=== PATIENT | female | born 1955 | race Caucasian/White ===

== ENCOUNTER 2023-03-08 17:29 | Inpatient (IN) | payer MEDICARE, OTHER ==
[~2023-03-08] VITALS: Ht 154.9 cm; Wt 49.0 kg
--- NOTE | 2023-03-08 17:40 | NUR ---
NIGEL FROM SNF FOR SOB X 3 DAYS, NOTED O2 DESATS TODAY, VENT DEPENDENT. PLACED IN BED, AAOX4, RESP. TECH. AT BEDSIDE ATTACHED TO VENTILATOR FIO2- 40, VT- 450, RATE- 12, PEEP- 5 SATURATING AT 99%.
--- NOTE | 2023-03-08 17:50 | NUR ---
BLOOD DRAWN AND SENT TO LAB
[2023-03-08] MEDS ORDERED: IPRATROPIUM NEB FS 0.5 MG/2.5 ML AMPUL.NEB ONE ×2 (17:53→21:31)
[2023-03-08] MEDS ORDERED: ALBUTEROL FS 2.5 MG/3 ML VIAL.NEB ONE ×2 (17:53→21:31)
[2023-03-08] MEDS ORDERED: IPRATROPIUM NEB FS 0.5 MG/2.5 ML AMPUL.NEB NEB ONE ×2 (18:00→21:30)
[2023-03-08] MEDS ORDERED: ALBUTEROL FS 2.5 MG/3 ML VIAL.NEB NEB ONE ×2 (18:00→21:30)
[2023-03-08 18:20] LABS: BASOPHILS % (AUTO) 0.3 % (0.0-2.0); EOSINOPHILS % (AUTO) 0.9 % (0.0-6.0); HEMATOCRIT 31 % (33-45); HEMOGLOBIN 9.8 g/dL (11.5-14.8); LYMPHOCYTES # (AUTO) 1.3 K/uL (0.8-4.8); LYMPHOCYTES % (AUTO) 7.7 % (20.0-44.0); MEAN CORPUSCULAR HGB CONC 31 g/dl (31.0-36.0); MEAN CORPUSCULAR VOLUME 87 fL (82-100); MONOCYTES # (AUTO) 0.8 K/uL (0.1-1.30); MONOCYTES % (AUTO) 4.8 % (2.0-12.0); NEUTROPHILS # (AUTO) 14.6 K/uL (1.8-8.9); NEUTROPHILS % (AUTO) 86.3 % (43.0-81.0); PLATELET COUNT (AUTO) 442 K/uL (150-450); WHITE BLOOD COUNT (AUTO) 16.9 K/uL (4.3-11.0)
[2023-03-08] MEDS ORDERED: LINA5TAB GT (18:22)
[2023-03-08] MEDS ORDERED: METO25TA20 GT (18:22)
[2023-03-08] MEDS ORDERED: NA P133E RC (18:22)
[2023-03-08] MEDS ORDERED: ACET-868 GT (18:22)
[2023-03-08] MEDS ORDERED: POLY17PO4 GT (18:22)
[2023-03-08] MEDS ORDERED: ASPI-1169 GT (18:22)
[2023-03-08] MEDS ORDERED: BUDE0.5A IH (18:22)
[2023-03-08] MEDS ORDERED: POTA10TA10 GT (18:22)
[2023-03-08] MEDS ORDERED: QUET100T GT (18:22)
[2023-03-08] MEDS ORDERED: ASCO-352 GT (18:22)
[2023-03-08] MEDS ORDERED: LACT1CAP71 GT (18:22)
[2023-03-08] MEDS ORDERED: METO-295 GT (18:22)
[2023-03-08] MEDS ORDERED: CRAN425C6 GT (18:22)
[2023-03-08] MEDS ORDERED: ZINC220C6 GT (18:22)
[2023-03-08] MEDS ORDERED: AMLO2.5T4 GT (18:22)
[2023-03-08] MEDS ORDERED: PHEN177S46 MM (18:22)
[2023-03-08] MEDS ORDERED: LORA-259 GT (18:22)
[2023-03-08] MEDS ORDERED: AMIN30LI2 GT (18:22)
[2023-03-08] MEDS ORDERED: ALBU2.5V38 IH ×2 (18:22)
[2023-03-08] MEDS ORDERED: CALC1TAB30 GT (18:22)
[2023-03-08] MEDS ORDERED: CLON0.5T4 GT (18:22)
[2023-03-08] MEDS ORDERED: INSU100V11 SQ (18:22)
[2023-03-08] MEDS ORDERED: DOCU-141 GT (18:22)
[2023-03-08] MEDS ORDERED: BISA10SU11 RC (18:22)
[2023-03-08] MEDS ORDERED: CRAN3875 GT (18:22)
[2023-03-08] MEDS ORDERED: MULT-447 GT (18:22)
[2023-03-08] MEDS ORDERED: CAPT25TA3 GT (18:22)
[2023-03-08] MEDS ORDERED: FERR300L GT (18:22)
[2023-03-08] MEDS ORDERED: PRED20TA GT (18:22)
[2023-03-08] MEDS ORDERED: ACET-2605 GT (18:22)
[2023-03-08] MEDS ORDERED: LAMO150T2 GT (18:22)
[2023-03-08] MEDS ORDERED: QUET50TA GT (18:22)
[2023-03-08] MEDS ORDERED: HYDR-500 GT (18:22)
[2023-03-08] MEDS ORDERED: DAPA10TA GT (18:22)
[2023-03-08] MEDS ORDERED: ESCI10TA GT (18:22)
[2023-03-08] MEDS ORDERED: NUT.237L30 GT (18:22)
[2023-03-08] MEDS ORDERED: CLOB15OI3 TP (18:22)
[2023-03-08] MEDS ORDERED: CHLO473M5 MM (18:22)
[2023-03-08] MEDS ORDERED: MAGN400O6 GT (18:22)
[2023-03-08] MEDS ORDERED: HYDR-4076 GT (18:22)
[2023-03-08] MEDS ORDERED: LANS30CA56 GT (18:22)
[2023-03-08 18:29] LABS: CALCIUM, SERUM 11.2 mg/dL (8.5-10.1); CREATININE 0.9 mg/dL (0.6-1.3)
[2023-03-08 18:41] LABS: ALBUMIN 3.7 g/dL (3.4-5.0); BILIRUBIN,TOTAL 0.3 mg/dL (0.2-1.0); TOTAL PROTEIN, SERUM 7.7 g/dL (6.4-8.2)
--- NOTE | 2023-03-08 18:53 | NUR ---
[place] [phone] CALVIN RN
--- NOTE | 2023-03-08 19:11 | NUR ---
RT pt received on mechanical vent with current settings. trached, shiley 6 xlt. vent settings: AC 12 450 40% +5. no sob, no resp distress. alarms on and audible. spare trach and ambu bag at bedside.
[2023-03-08 19:13] LABS: ABG PCO2 63.9 mmHg (35.0-45.0); ABG PH 7.421 (7.350-7.450); COHb 0.2 % (0.5-1.5); MetHb 0.9 % (0.0-1.5); O2Hb 96.9 % (94.0-97.0); SITE, ABG Left Radial; VENT MODE, BG AC 12 450 40% +5
--- NOTE | 2023-03-08 19:30 | NUR ---
SWAB FOR COVID19 SENT TO LAB
[2023-03-08] MEDS ORDERED: methylPREDNISolone SOD SUCC 125 MG/2ML VIAL ONE (21:13)
[2023-03-08] MEDS ORDERED: methylPREDNISolone SOD SUCC 125 MG/2ML VIAL IV ONE (21:30)
[2023-03-08] MEDS ORDERED: LORAZEPAM INJ 2 MG/ML VIAL ONE (21:42)
[2023-03-08] MEDS ORDERED: LORAZEPAM INJ 2 MG/ML VIAL IV ONE (22:00)
--- NOTE | 2023-03-08 22:17 | NUR ---
BED 329
--- NOTE | 2023-03-08 22:27 | NUR ---
REPORT SAMIR MENDOZA RN ROOM 329 FOR VERNA
[2023-03-08] MEDS ORDERED: Z GUARD REMEDY 4 OZ OINT TP PRN (22:30)
[2023-03-08] MEDS ORDERED: BISACODYL SUPP (10 MG) 10 MG/SUPP.RECT SUPP.RECT RC PRN (22:30)
[2023-03-08] MEDS ORDERED: ACETAMINOPHEN 325 MG TABLET MC PRN (22:30)
[2023-03-08] MEDS ORDERED: MAG HYDROX/AL HYDROX/SIMETH 30 ML UDC GT PRN (22:30)
[2023-03-08] MEDS ORDERED: MAGNESIUM HYDROXIDE 30 ML UDC PO PRN (22:30)
[2023-03-08] MEDS ORDERED: ONDANSETRON HCL/PF 4 MG/2 ML VIAL IVP PRN (22:30)
[2023-03-08] MEDS ORDERED: BUDESONIDE RESPULE INH 0.5 MG/2 ML AMPUL.NEB IH PRN (22:30)
[2023-03-08] MEDS ORDERED: ALBUTEROL FS 2.5 MG/3 ML VIAL.NEB IH PRN (22:30)
[2023-03-08] MEDS ORDERED: METOCLOPRAMIDE HCL 10 MG TABLET GT PRN (22:30)
[2023-03-08] MEDS ORDERED: ZOLPIDEM TARTRATE 5 MG TABLET GT PRN (22:30)
[2023-03-08] MEDS ORDERED: ACETAMINOPHEN ES 500 MG TABLET GT PRN (22:30)
[2023-03-08] MEDS ORDERED: MAGNESIUM HYDROXIDE 30 ML UDC GT PRN (22:30)
[2023-03-08] MEDS ORDERED: DEXTROSE 50%-WATER 50 ML DISP.SYRIN IV PRN (22:30)
[2023-03-08 23:10] VITALS: BP 171/69
--- NOTE | 2023-03-08 23:10 | NUR ---
TELEPHONE LINES REPAIRER ADMITTING NOTES PT ARRIVED TO UNIT @ 2310 VIA GURNEY ASSISTED BY ER AND RT STAFF, CAME WITH VENTILATOR. PT IS NON-VERBAL BUT ALERT AND ABLE TO MOUTH WORDS OR WRITE IN PAPER OR TYPE IN PHONE TO COMMUNICATE FOR NEEDS. ON MECHANICAL VENTILATOR TOLERATING WELL WITH NO S/S OF SOB OR DISTRESS. DENIES PAIN AT THIS TIME BUT ANXIOUS AND REQUESTING ATIVAN. EXPLAINED TO PT THAT SHE WAS JUST GIVEN ATIVAN IN ER AND WILL HAVE TO WAIT UNTIL ITS DUE. PT COMMUNICATED UNDERSTANDING. VENTILATOR SETTINGS: FIO2 40%, VT 450 ML, RATE 12/MIN, PEEP 5. VITAL SIGNS: 171/69 BP, 84 HR, 98 F TEMP, 98% O2, 19 RR, 98 BLOOD SUGAR. PLACED ON TELE MONITOR READING SR, 82 HR. BREATH SOUNDS NOTED WITH RHONCHI. CIRCULATION WNL. ABDOMEN SOFT, NON-TENDER, NON-DISTENDED. GTUBE INTACT, PLACEMENT CONFIRMED, NO RESIDUALS, NO LEAKAGE, FLUSHED WELL. COLOSTOMY INTACT, ALMOST FULL. SKIN ASSESSMENT PERFORMED, SOME ISSUES NOTED AND DOCUMENTED. BELONGINGS DOCUMENTED. PT ORIENTED TO UNIT AND HOW TO USE CALL LIGHT. MADE COMFORTABLE. SAFETY AND SEIZURE PRECAUTIONS PUT IN PLACE: BED LOCKED AND IN LOW POSITION, SIDE RAILS UP X3, BED ALARM ON, SUCTION SETUP IN PLACE, CALL LIGHT WITHIN REACH. WILL CONTINUE TO MONITOR AND ASSIST.
--- NOTE | 2023-03-08 23:10 | NUR ---
PATIENT TRANSFERED AND ADMITTED PER ACLS PROTOCOL
--- NOTE | 2023-03-08 23:16 | NUR ---
RT pt transferred to floor with no complications. placed on vent, plugged in to red outlet. alarms on and audible. ambu bag at bedside
[2023-03-08] MEDS ORDERED: LEVOFLOXACIN 500 MG /D5W 100ML 100 ML IV ONE (23:27)
[2023-03-08] MEDS ORDERED: ACETAMINOPHEN 650 MG/20.3 ML UDC GT PRN (23:30)
[2023-03-08] MEDS: LEVOFLOXACIN 500 MG /D5W 100ML 500 MG in PREMIX 1 EA IV SCH (23:58)
[2023-03-08] MEDS: BLOOD SUGAR DIAGNOSTIC 1 EACH STRIP IN SCH (23:58)
[2023-03-08] MEDS: INSULIN REGULAR, HUMAN 100 UNIT/ML 3 ML VIAL SQ PRN (23:59)
[2023-03-09] MEDS: hydrALAZINE HCL 25 MG TABLET GT PRN ×2 (00:32→21:15)
--- NOTE | 2023-03-09 00:32 | NUR ---
RN NOTE PT BP 171/69. GIVEN PRN HYDRALAZINE FOR MANAGEMENT. WILL REASSESS BP IN 1 HOUR.
[2023-03-09 01:43] VITALS: BP 154/75
--- NOTE | 2023-03-09 01:43 | NUR ---
RN NOTE BP REASSESSED: 154/75.
[2023-03-09] MEDS: LORAZEPAM 1 MG TABLET GT PRN ×3 (01:48→23:24)
[2023-03-09] MEDS: GLUCERNA 1.2 1,000 ML BOTTLE NG PRN (03:09)
[2023-03-09] MEDS ORDERED: CAPTOPRIL 25 MG TABLET GT SCH (05:00)
[2023-03-09] MEDS: methylPREDNISolone SOD SUCC 40 MG/ML VIAL IV SCH ×3 (05:03→20:47)
[2023-03-09] MEDS: clonazePAM 0.5 MG TABLET GT SCH ×3 (05:03→20:23)
--- NOTE | 2023-03-09 05:04 | NUR ---
RN NOTE SCHEDULED CAPTOPRIL 25 MG @ 0500 NOT AVAILABLE ANYWHERE IN UNIT OR ANYWHERE ELSE IN FACILITY. BP 153/69. WILL MONITOR BP. CHARGE NURSE AWARE.
[2023-03-09 05:56] LABS: ABG BASE EXCESS 5.6 mmol/L; ABG OXYGEN SATURATION 97.6 % (92.0-98.5); ABG PCO2 47.7 mmHg (35.0-45.0); ABG PH 7.427 (7.350-7.450); ABG PO2 104.9 mmHg (75.0-100.0); AaDO2 125.4 mmHg; COHb 0.2 % (0.5-1.5); MetHb 0.3 % (0.0-1.5); O2Hb 97.1 % (94.0-97.0); SITE, ABG Right Radial; VENT MODE, BG AC 12 450 40% +5
[2023-03-09] MEDS: BLOOD SUGAR DIAGNOSTIC 1 EACH STRIP IN SCH ×4 (06:43→23:33)
[2023-03-09] MEDS: INSULIN REGULAR, HUMAN 100 UNIT/ML 3 ML VIAL SQ PRN ×3 (06:43→23:36)
--- NOTE | 2023-03-09 06:59 | NUR ---
AUDIOVISUAL TECHNICIAN CLOSING NOTES PT AWAKE IN BED AT THIS TIME. A/O X1-2, NON-VERBAL BUT ALERT AND ABLE TO MOUTH WORDS OR WRITE IN PAPER OR TYPE IN PHONE TO COMMUNICATE FOR NEEDS. MOMENTS OF CONFUSION AT TIMES. STABLE ON MECHANICAL VENTILATOR TOLERATING WELL WITH NO S/S OF SOB OR DISTRESS. VENTILATOR SETTINGS: FIO2 40%, VT 450 ML, RATE 12/MIN, PEEP 5. GTUBE INTACT, PLACEMENT CONFIRMED, NO RESIDUALS, NO LEAKAGE, FLUSHED WELL. RUNNING GLUCERNA 1.2 @ 50 ML/HR. FEEDING PAUSED 1 HR BEFORE AND AFTER ADMIN OF LEVAQUIN. COLOSTOMY INTACT, REPLACED DURING SHIFT. ALL CARE PROVIDED AND MEDS TOLERATED WELL. SUCTIONED PRN OR PER REQUEST. SAFETY AND SEIZURE PRECAUTIONS MAINTAINED: BED LOCKED AND IN LOW POSITION, SIDE RAILS UP X3, BED ALARM ON, SUCTION SETUP IN PLACE, CALL LIGHT WITHIN REACH. WILL ENDORSE EVRNA TO DAY SHIFT NURSE.
[2023-03-09 07:36] LABS: BASOPHILS % (AUTO) 0.1 % (0.0-2.0); HEMATOCRIT 28 % (33-45); HEMOGLOBIN 8.9 g/dL (11.5-14.8); LYMPHOCYTES # (AUTO) 0.8 K/uL (0.8-4.8); LYMPHOCYTES % (AUTO) 5.2 % (20.0-44.0); MEAN CORPUSCULAR HGB CONC 32 g/dl (31.0-36.0); MEAN CORPUSCULAR VOLUME 87 fL (82-100); MONOCYTES # (AUTO) 0.2 K/uL (0.1-1.30); MONOCYTES % (AUTO) 1.1 % (2.0-12.0); NEUTROPHILS # (AUTO) 15.2 K/uL (1.8-8.9); NEUTROPHILS % (AUTO) 93.6 % (43.0-81.0); PLATELET COUNT (AUTO) 374 K/uL (150-450); RED BLOOD CELL COUNT(AUTO) 3.23 MIL/uL (4.0-5.2); WHITE BLOOD COUNT (AUTO) 16.2 K/uL (4.3-11.0)
[2023-03-09] MEDS: ALBUTEROL FS 2.5 MG/3 ML VIAL.NEB IH SCH ×2 (07:46)
--- NOTE | 2023-03-09 07:59 | NUR ---
RN OPENING NOTE RECEIVED PATIENT IN BED, ABLE TO RESPONDS ALL PHYSICAL STIMULI. PATIENT IS ON VENTILATOR, RESPIRATORY EVEN AND UNLABORED. IN NO ACUTE RESPIRATORY DISTRESS OBSERVED. SKIN IS WARM TO TOUCH, KEEP CLEAN/DRY. KEPT ELEVATED HOB FOR ASPIRATION PRECAUTION AND ENSURE AIRWAY, ALSO LOWEST BED POSITIONED. BED ALARM IS ON AT ALL TIMES FOR SAFETY. CALL LIGHT WITHIN REACH, WILL CONTINUE TO MONITOR.
[2023-03-09 08:00] VITALS: BP 161/74
[2023-03-09 08:09] LABS: CALCIUM, SERUM 10.6 mg/dL (8.5-10.1); CREATININE 0.9 mg/dL (0.6-1.3); MAGNESIUM 2.2 mg/dL (1.8-2.4); PHOSPHORUS 4.7 mg/dL (2.5-4.9); POTASSIUM 3.5 mmol/L (3.5-5.1)
[2023-03-09] MEDS: PANTOPRAZOLE 40 MG VIAL IV SCH (08:55)
[2023-03-09] MEDS: LamoTRIgine 25 MG TABLET GT SCH ×2 (08:56→20:23)
[2023-03-09] MEDS: FERROUS SULFATE UDC 300 MG/5 ML UDC GT SCH ×2 (08:57→16:55)
[2023-03-09] MEDS: ESCITALOPRAM OXALATE (10 MG) 10 MG TABLET GT SCH (08:57)
[2023-03-09] MEDS: LamoTRIgine 100 MG TABLET GT SCH ×2 (08:57→20:23)
[2023-03-09] MEDS: CALCIUM CARB 600MG /VIT D 1 EACH TABLET GT SCH (08:57)
[2023-03-09] MEDS: CHLORHEXIDINE GLUCONATE 15 ML UDC MM SCH ×2 (08:57→16:55)
[2023-03-09] MEDS: QUETIAPINE FUMARATE 25 MG TABLET GT SCH ×2 (08:57→16:56)
[2023-03-09] MEDS: DOCUSATE SODIUM LIQ 100 MG/10 ML UDC GT SCH ×2 (08:57→16:55)
[2023-03-09] MEDS: ASCORBIC ACID 500 MG TABLET GT SCH (08:57)
[2023-03-09] MEDS: MULTIVIT W/MINERALS 1 TAB TABLET GT SCH (08:58)
[2023-03-09] MEDS: LACTOBACILLUS RHAMNOSUS GG 1 EACH CAP.SPRINK GT SCH ×2 (08:58→16:55)
[2023-03-09] MEDS: ASPIRIN 81 MG TAB.CHEW GT SCH (08:58)
[2023-03-09] MEDS: METOPROLOL TARTRATE 25 MG TABLET GT SCH ×2 (08:59→16:55)
[2023-03-09] MEDS: LINAGLIPTIN 5 MG TABLET GT SCH (08:59)
[2023-03-09] MEDS: AMLODIPINE BESYLATE 2.5 MG TABLET GT SCH ×2 (08:59→16:56)
[2023-03-09] MEDS: LISINOPRIL (10MG) 10 MG TABLET PO SCH ×2 (08:59→16:55)
[2023-03-09] MEDS ORDERED: Medication Not On Formulary EA (Cran/Vitc/Mannose/Inulin/Brom (Uti-Stat Liquid) 3,875 MG GT SCH (09:00)
[2023-03-09] MEDS ORDERED: Medication Not On Formulary EA (Lamotrigine (Lamictal) 150 MG) GT SCH (09:00)
[2023-03-09] MEDS: DAPAGLIFLOZIN PROPANEDIOL 5 MG TABLET GT SCH (09:04)
[2023-03-09] MEDS: PROSOURCE / PROSTAT (PYXIS) 30 ML UDC GT SCH (09:04)
[2023-03-09] MEDS: CLOBETASOL 0.05% OINT 30 GM TUBE TP SCH ×2 (09:05→16:57)
[2023-03-09] MEDS: ENOXAPARIN SODIUM 40 MG/0.4 ML DISP.SYRIN SQ SCH (11:01)
[2023-03-09 12:00] VITALS: BP 151/72
[2023-03-09] MEDS: ALBUTEROL FS 2.5 MG/3 ML VIAL.NEB NEB SCH ×2 (13:41→18:48)
[2023-03-09 16:00] VITALS: BP 168/85
--- NOTE | 2023-03-09 18:08 | NUR ---
RECEIVED PATIENT ON MD ORDERED VENT SETTINGS. HAS A TRACH SHILEY 6XLT. AIRWAY PATENT AND SECURE. HHN TXS DAIJA WELL WITH NO ADVERSE REACTION NOTED. AMBU BAG AND EMERGENCY TRACH AT THE BEDSIDE. VENT PLUGGED INTO RED OUTLET. ALARMS SET AND AUDIBLE. NO SOB NOTED.
--- NOTE | 2023-03-09 18:29 | NUR ---
RN CLOSING NOTE PATIENT RESTING IN BED. IN NO ACUTE DISTRESS OBSERVED. THE PATIENT IS ON VENTILATION AND RESPIRATORY EVEN AND UNLABORED, NO SOB OR DESATURATION NOTED. PATIENT SCHEDULED HHN Q 6 HOURS. SKIN IS WARM TO TOUCH KEEP CLEAN/DRY. KEPT ELEVATED HOB FOR ENSURE AIRWAY AND ASPIRATION PRECAUTION, ALSO LOWEST BED POSITION. BED ALARM IS ON AT ALL TIMES FOR SAFETY. CALL LIGHT WITHIN REACH, WILL ENDORSE HORTICULTURAL SPECIALTY GROWER.
--- NOTE | 2023-03-09 18:51 | NUR ---
Rt called to Pt room at start of shift, Pt assessed and is not in any Respiratory distress. Pt is on AC PRVC settings of Rate 12, VT 450, 40% Peep +5. Pt is comfortable on this settings. Diminished breath sounds all lobes, Pt suctioned with small thick yellow secretions. Pt refuses to have trach cuff inflated properly so she can talk. Neb tx given and babar well. Vent plugged into red outlet with alarms on and audible. Spare trach and ambu bag at bedside. Spo2 >92%
--- NOTE | 2023-03-09 19:30 | NUR ---
TANKAGE GRINDER OPERATOR OPENING NOTE RECEIVED PATIENT FROM AM NURSE; PATIENT IS A/O X 2, NON VERBAL BUT IS ABLE TO MOUTH WORDS; STABLE ON MECH VENT TOLERATING CURRENT SETTINGS; HOOKED TO HOG HANDLER CURRENTLY READING SINUS RHYTHM; COLOSTOMY BAG IN PLACE DRAINING TO BROWN COLORED STOOL; ON TUBE FEEDING RUNNING WITH GLUCERNA 1.2 AT 50ML/HR; WITH IV ACCESS AT LEFT AC G#20 SALINE LOCK; ENCOURAGED VERBALIZATION OF NEEDS; SAFETY MEASURES IMPLEMENTED, BED LOCKED IN LOWEST POSITION, SIDE RAILS UP X 3, CALL LIGHT AND TABLE WITHIN REACH; WILL CONTINUE TO MONITOR THROUGHOUT SHIFT
[2023-03-09 20:00] VITALS: BP 165/90
--- NOTE | 2023-03-09 21:20 | NUR ---
CARBON SEQUESTRATION PLANT ENGINEER NOTE INFORMED BY CLUB WAITER/WAITRESS THAT PATIENT'S BP WAS 176/61 MMHG; RECHECKED BP MANUALLY AND PATIENT'S BP WAS 165/80; CHECKED AGAIN AFTERWARDS AND WENT UP AGAIN TO 175/80; ADMINISTERED HYDRALAZINE 25MG PRN ORDERED; PATIENT TOLERATED WELL, WILL CONTINUE TO MONITOR
[2023-03-09] MEDS: QUETIAPINE FUMARATE 100 MG TABLET GT SCH (21:44)
[2023-03-09] MEDS: LEVOFLOXACIN 500 MG /D5W 100ML 500 MG in PREMIX 1 EA IV SCH (21:44)
[2023-03-10] VITALS (7 sets, daily range): BP systolic 144–164; BP diastolic 55–90
[2023-03-10] MEDS: ALBUTEROL FS 2.5 MG/3 ML VIAL.NEB NEB SCH ×4 (02:17→20:42)
[2023-03-10] MEDS: GLUCERNA 1.2 1,000 ML BOTTLE NG PRN (04:03)
[2023-03-10] MEDS: methylPREDNISolone SOD SUCC 40 MG/ML VIAL IV SCH ×3 (04:29→20:24)
[2023-03-10] MEDS: clonazePAM 0.5 MG TABLET GT SCH ×3 (04:29→20:23)
[2023-03-10] MEDS: BLOOD SUGAR DIAGNOSTIC 1 EACH STRIP IN SCH ×3 (05:20→17:08)
[2023-03-10] MEDS: INSULIN REGULAR, HUMAN 100 UNIT/ML 3 ML VIAL SQ PRN (05:38)
[2023-03-10 06:21] LABS: BILIRUBIN,URINE NEGATIVE (NEGATIVE); COLOR,URINE YELLOW (YELLOW); LEUKOCYTE ESTERASE ,URINE NEGATIVE (NEGATIVE); NITRITE, URINE NEGATIVE (NEGATIVE); PROTEIN,URINE NEGATIVE (NEGATIVE); UGLUCOSE 2+ mg/dL (NEGATIVE); UROBILINOGEN,URINE 0.2 EU/dL (0.2)
[2023-03-10 06:22] LABS: BACTERIA,URINE Rare /HPF (None Seen); RBC,URINE 0-2 /HPF (0-2); SQUAMOUS EPITHELIAL CELL,UR Few /HPF (None Seen); WBC,URINE 0-2 /HPF (0-3)
--- NOTE | 2023-03-10 06:57 | NUR ---
MEDICAL/SURGERY REGISTERED NURSE CLOSING NOTE PATIENT RESTING IN BED, A/O X 2, NON VERBAL BUT IS ABLE TO MOUTH WORDS; STABLE ON MECH VENT TOLERATING CURRENT SETTINGS; HOOKED TO FOOD COUNTER WORKER CURRENTLY READING SINUS RHYTHM 60-70S BPM; COLOSTOMY BAG IN PLACE DRAINING TO BROWN COLORED STOOL; ON TUBE FEEDING RUNNING WITH GLUCERNA 1.2 AT 50ML/HR; WITH IV ACCESS AT LEFT ANTECUBITAL G#20 SALINE LOCK, INTACT AND PATENT; ADMINISTERED MEDICATIONS PRESCRIBED; PATIENT'S NEEDS ATTENDED; MONITORED PATIENT ACCORDINGLY; NO COMPLAINTS OF PAIN AND DISCOMFORT AT THIS TIME; SAFETY MEASURES IMPLEMENTED, BED LOCKED IN LOWEST POSITION, SIDE RAILS UP X 3, CALL LIGHT WITHIN REACH; WILL ENDORSE TO AM NURSE FOR VERNA.
--- NOTE | 2023-03-10 07:20 | NUR ---
RN OPENING NOTE RECEIVED PATIENT IN BED, AWAKE, RESPONSIVE. PATIENT IS ON VENTILATOR, RESPIRATION EVEN AND UNLABORED, NO RESPIRATORY DISTRESS NOTED. SKIN IS WARM TO TOUCH. G-TUBE IN PLACE, FLUSHES WELL. STOMA POUCH 1/3 FULL, SKIN AROUND CLEAN AND DRY. ELEVATED HOB FOR ASPIRATION PRECAUTION AND ENSURE AIRWAY. IV ACCESS LEFT AC 20G. BED ALARM IS ON AT ALL TIMES FOR SAFETY. CALL LIGHT WITHIN REACH, WILL CONTINUE TO MONITOR.
[2023-03-10] MEDS: LORAZEPAM 1 MG TABLET GT PRN ×2 (07:56→14:59)
[2023-03-10 08:56] LABS: BASOPHILS % (AUTO) 0.1 % (0.0-2.0); HEMATOCRIT 32 % (33-45); HEMOGLOBIN 9.9 g/dL (11.5-14.8); LYMPHOCYTES % (AUTO) 4.9 % (20.0-44.0); MEAN CORPUSCULAR HGB CONC 31 g/dl (31.0-36.0); MEAN CORPUSCULAR VOLUME 88 fL (82-100); MONOCYTES # (AUTO) 0.6 K/uL (0.1-1.30); MONOCYTES % (AUTO) 3.1 % (2.0-12.0); NEUTROPHILS # (AUTO) 18.2 K/uL (1.8-8.9); NEUTROPHILS % (AUTO) 91.9 % (43.0-81.0); PLATELET COUNT (AUTO) 409 K/uL (150-450); RED BLOOD CELL COUNT(AUTO) 3.68 MIL/uL (4.0-5.2); WHITE BLOOD COUNT (AUTO) 19.8 K/uL (4.3-11.0)
[2023-03-10] MEDS: LamoTRIgine 25 MG TABLET GT SCH ×2 (09:00→20:23)
[2023-03-10] MEDS: PROSOURCE / PROSTAT (PYXIS) 30 ML UDC GT SCH (09:17)
[2023-03-10] MEDS: CHLORHEXIDINE GLUCONATE 15 ML UDC MM SCH ×2 (09:18→16:43)
[2023-03-10] MEDS: CLOBETASOL 0.05% OINT 30 GM TUBE TP SCH ×2 (09:18→16:38)
[2023-03-10] MEDS: PANTOPRAZOLE 40 MG VIAL IV SCH (09:31)
[2023-03-10] MEDS: DOCUSATE SODIUM LIQ 100 MG/10 ML UDC GT SCH ×2 (09:31→16:37)
[2023-03-10] MEDS: FERROUS SULFATE UDC 300 MG/5 ML UDC GT SCH ×2 (09:31→16:43)
[2023-03-10] MEDS: LACTOBACILLUS RHAMNOSUS GG 1 EACH CAP.SPRINK GT SCH ×2 (09:32→16:43)
[2023-03-10] MEDS: CALCIUM CARB 600MG /VIT D 1 EACH TABLET GT SCH (09:32)
[2023-03-10] MEDS: LamoTRIgine 100 MG TABLET GT SCH ×2 (09:32→20:24)
[2023-03-10] MEDS: QUETIAPINE FUMARATE 25 MG TABLET GT SCH ×2 (09:32→16:43)
[2023-03-10] MEDS: ASPIRIN 81 MG TAB.CHEW GT SCH (09:32)
[2023-03-10] MEDS: ESCITALOPRAM OXALATE (10 MG) 10 MG TABLET GT SCH (09:32)
[2023-03-10] MEDS: LINAGLIPTIN 5 MG TABLET GT SCH (09:32)
[2023-03-10] MEDS: LISINOPRIL (10MG) 10 MG TABLET PO SCH ×2 (09:33→16:44)
[2023-03-10] MEDS: MULTIVIT W/MINERALS 1 TAB TABLET GT SCH (09:34)
[2023-03-10] MEDS: AMLODIPINE BESYLATE 2.5 MG TABLET GT SCH ×2 (09:34→16:43)
[2023-03-10] MEDS: ASCORBIC ACID 500 MG TABLET GT SCH (09:34)
[2023-03-10] MEDS: METOPROLOL TARTRATE 25 MG TABLET GT SCH ×2 (09:34→16:44)
[2023-03-10] MEDS: ENOXAPARIN SODIUM 40 MG/0.4 ML DISP.SYRIN SQ SCH (09:38)
[2023-03-10] MEDS: DAPAGLIFLOZIN PROPANEDIOL 5 MG TABLET GT SCH (09:42)
--- NOTE | 2023-03-10 18:36 | NUR ---
RN CLOSING NOTE PATIENT IN BED, AWAKE, SITTING UPRIGHT, RESPONSIVE. PATIENT IS ON VENTILATOR, RESPIRATION EVEN AND UNLABORED, NO RESPIRATORY DISTRESS NOTED. SKIN IS WARM TO TOUCH. G-TUBE IN PLACE, FLUSHES WELL. STOMA POUCH CHANGED, SKIN AROUND CLEAN AND DRY. IV ACCESS LEFT AC 20G. BED ALARM IS ON AT ALL TIMES FOR SAFETY. CALL LIGHT WITHIN REACH, WILL ENDORSE TO THE TUFTING CREELER FOR VERNA.
--- NOTE | 2023-03-10 19:20 | NUR ---
FOOD SERVER OPENING NOTE PATIENT IS A/O X 2-3, NON VERBAL BUT IS ABLE TO MOUTH WORDS; STABLE ON MECH VENT TOLERATING CURRENT SETTINGS; HOOKED TO PICKING BELT OPERATOR CURRENTLY READING SINUS RHYTHM; COLOSTOMY BAG IN PLACE DRAINING TO BROWN COLORED STOOL; ON TUBE FEEDING RUNNING WITH GLUCERNA 1.2 AT 50ML/HR; WITH IV ACCESS AT LEFT AC G#20 SALINE LOCK; ENCOURAGED VERBALIZATION OF NEEDS; SAFETY MEASURES IMPLEMENTED, BED LOCKED IN LOWEST POSITION, SIDE RAILS UP X 3, CALL LIGHT AND TABLE WITHIN REACH; WILL CONTINUE TO MONITOR THROUGHOUT SHIFT
[2023-03-10] MEDS: QUETIAPINE FUMARATE 100 MG TABLET GT SCH (21:40)
[2023-03-10] MEDS: LEVOFLOXACIN 500 MG /D5W 100ML 500 MG in PREMIX 1 EA IV SCH (21:41)
[2023-03-11] VITALS: BP 135/60
[2023-03-11] MEDS: BLOOD SUGAR DIAGNOSTIC 1 EACH STRIP IN SCH ×4 (00:04→18:14)
[2023-03-11] MEDS: LORAZEPAM 1 MG TABLET GT PRN ×5 (01:29→23:27)
--- NOTE | 2023-03-11 01:35 | NUR ---
MANAGER SUPPLY CHAIN NOTE PATIENT CALLED AND REQUESTED ATIVAN; ADMINISTERED ATIVAN PRN ORDERED AT 0129H; PATIENT TOLERATED WELL; WILL CONTINUE TO MONITOR
[2023-03-11] MEDS: ALBUTEROL FS 2.5 MG/3 ML VIAL.NEB NEB SCH ×2 (02:19→07:33)
[2023-03-11] MEDS: GLUCERNA 1.2 1,000 ML BOTTLE NG PRN (02:26)
[2023-03-11 04:00] VITALS: BP 173/76
[2023-03-11] MEDS: methylPREDNISolone SOD SUCC 40 MG/ML VIAL IV SCH (04:19)
[2023-03-11] MEDS: clonazePAM 0.5 MG TABLET GT SCH ×3 (04:19→21:06)
[2023-03-11] MEDS: hydrALAZINE HCL 25 MG TABLET GT PRN (04:33)
--- NOTE | 2023-03-11 05:45 | NUR ---
Pt requests that cuff is slighlty deflated to communicate needs easier. Does not appear in an resp distress.
--- NOTE | 2023-03-11 06:00 | NUR ---
ALLERGY PHYSICIAN NOTE PATIENT GOT ANXIOUS; TRIED TO CALM THE PATIENT DOWN BUT IS UNABLE TO; ADMINISTERED DUE DOSE OF ATIVAN PRN AT 0534; PATIENT TOLERATED WELL AND IS ABLE TO FEEL A LITTLE BETTER; WILL CONTINUE TO MONITOR
--- NOTE | 2023-03-11 06:58 | NUR ---
FORM RAISER CLOSING NOTE PATIENT IS A/O X 2-3, NON VERBAL BUT IS ABLE TO MOUTH WORDS; STABLE ON MECHANICAL VENTILATOR TOLERATING CURRENT SETTINGS; HOOKED TO CITY PLANT SUPERVISOR CURRENTLY READING SINUS RHYTHM 90S; COLOSTOMY BAG IN PLACE DRAINING TO BROWN COLORED STOOL; ON TUBE FEEDING RUNNING WITH GLUCERNA 1.2 AT 50ML/HR; WITH IV ACCESS AT LEFT AC G#20 SALINE LOCK, INTACT AND PATENT; ADMINISTERED MEDICATIONS PRESCRIBED; PATIENT'S NEEDS ATTENDED; MONITORED PATIENT ACCORDINGLY; SAFETY MEASURES IMPLEMENTED, BED LOCKED IN LOWEST POSITION, SIDE RAILS UP X 3, CALL LIGHT AND TABLE WITHIN REACH; WILL ENDORSE TO AM NURSE FOR VERNA.
[2023-03-11 07:00] VITALS: BP 156/57
--- NOTE | 2023-03-11 07:47 | NUR ---
BRACELET FORMER Opening Note Received patient on bed awake, A/O x2-3, bedrest, sacral redness, bilateral upper extremeties bruses with rash, VS q4, non verbal, able to mouth words to make needs known, able to calm down with staff consult, on mech vent Danya XLT Proximal. FiO2 40%, VT 450ml, P 5 cmH2O, Rate 12/min, on tele monitor, colostomy bad at Left upper abd, Gtube site at Left abd with Glucerna 1.2 running at 50 ml/h, IV access #20 saline lock at Left AC. [place] face. Safety measure inplace, bed lock in lowest position, side rails up x3, call light at reach. Continue to monitor patient.
[2023-03-11] MEDS: ALBUTEROL HALF STRENGTH 1.25 MG/3 ML VIAL.NEB NEB SCH ×3 (09:30→20:52)
[2023-03-11] MEDS: IPRATROPIUM NEB FS 0.5 MG/2.5 ML AMPUL.NEB NEB SCH ×3 (09:30→20:52)
[2023-03-11] MEDS: LACTOBACILLUS RHAMNOSUS GG 1 EACH CAP.SPRINK GT SCH ×2 (10:08→17:48)
[2023-03-11] MEDS: CHLORHEXIDINE GLUCONATE 15 ML UDC MM SCH ×2 (10:08→17:47)
[2023-03-11] MEDS: FERROUS SULFATE UDC 300 MG/5 ML UDC GT SCH ×2 (10:08→17:50)
[2023-03-11] MEDS: DOCUSATE SODIUM LIQ 100 MG/10 ML UDC GT SCH ×2 (10:08→17:48)
[2023-03-11] MEDS: ENOXAPARIN SODIUM 40 MG/0.4 ML DISP.SYRIN SQ SCH (10:10)
[2023-03-11] MEDS: CALCIUM CARB 600MG /VIT D 1 EACH TABLET GT SCH (10:10)
[2023-03-11] MEDS: ESCITALOPRAM OXALATE (10 MG) 10 MG TABLET GT SCH (10:11)
[2023-03-11] MEDS: ASCORBIC ACID 500 MG TABLET GT SCH (10:11)
[2023-03-11] MEDS: AMLODIPINE BESYLATE 2.5 MG TABLET GT SCH ×2 (10:12→17:47)
[2023-03-11] MEDS: ASPIRIN 81 MG TAB.CHEW GT SCH (10:15)
[2023-03-11] MEDS: DAPAGLIFLOZIN PROPANEDIOL 5 MG TABLET GT SCH (10:26)
[2023-03-11] MEDS: MULTIVIT W/MINERALS 1 TAB TABLET GT SCH (10:35)
[2023-03-11] MEDS: LamoTRIgine 100 MG TABLET GT SCH ×2 (10:35→21:06)
[2023-03-11] MEDS: LamoTRIgine 25 MG TABLET GT SCH ×2 (10:35→21:06)
[2023-03-11] MEDS: QUETIAPINE FUMARATE 25 MG TABLET GT SCH ×2 (10:37→17:50)
[2023-03-11] MEDS: PANTOPRAZOLE 40 MG/PACK PACK GT SCH (10:37)
[2023-03-11] MEDS: METOPROLOL TARTRATE 25 MG TABLET GT SCH ×2 (10:38→17:49)
[2023-03-11] MEDS: LISINOPRIL (10MG) 10 MG TABLET PO SCH ×2 (10:38→17:48)
[2023-03-11] MEDS: PROSOURCE / PROSTAT (PYXIS) 30 ML UDC GT SCH (10:38)
[2023-03-11] MEDS: LINAGLIPTIN 5 MG TABLET GT SCH (10:40)
[2023-03-11] MEDS: CLOBETASOL 0.05% OINT 30 GM TUBE TP SCH ×2 (10:40→17:51)
[2023-03-11 13:25] LABS: CALCIUM, SERUM 10.7 mg/dL (8.5-10.1); CREATININE 0.9 mg/dL (0.6-1.3); POTASSIUM 3.5 mmol/L (3.5-5.1)
--- NOTE | 2023-03-11 14:20 | NUR ---
POLISHING MACHINE TENDER Note Received critical value from Liat from lab at 1330, patient CO2 is 40. Called doctor Vickey office at 1335 and left a message. Received call back from doctor Vickey at 1345, instructed to notify doctor Jazmin. Doctor Wu notified at 1350. Doctor Jazmin acknowldege at 1420 with no new order.
[2023-03-11 16:00] VITALS: BP 130/70
--- NOTE | 2023-03-11 19:24 | NUR ---
BIOINFORMATICS SCIENTIST Closing Note Pt on bed, awake, A/O X 2-3, non verbal, able to make needs known with mouth words/writing, on mechanical ventilator, tele monitor SR 75. Colostomy bag Left abd, tube feeding running Glucerna 1.2 at 50ml/h. IV access at Left AC #20 saline lock, inplaced, patent, no s/s of infiltration/infection. Frequently attended/assisted pt per call light/request. Closely monitored pt. Safety measure in placed, bed lowest position, locked, side rails up x3. Call light at reach. Will endore to next shift nurse.
--- NOTE | 2023-03-11 19:31 | NUR ---
RN OPENING NOTE; RECEIVED PATIENT IN BED AWAKED AOX2-3,ABLE TO MAKE NEEDS KNOWN,ON VENTILATOR ASSEEST DAIJA WELL SATING 97%,NO SIGN SOB/DISTRESS NOTED,ON G-TUBE FEEDING GLUCERNA 1.2 @50ML/HR INFUSING WELL,NO RESIDUAL NOTED,HOB ELEVATED AT ALL TIME,COLOSTOMY BAG INPLACE,IV ACCESS LEFT AC 20G SL.PATENT AND INTACT,SAFETY MEASURE IN PLACE ,CALL LIGHT WITHIN REACH, WILL CONTINUE TO MONITOR.
[2023-03-11] MEDS: QUETIAPINE FUMARATE 100 MG TABLET GT SCH (21:06)
[2023-03-11] MEDS: LEVOFLOXACIN 500 MG /D5W 100ML 500 MG in PREMIX 1 EA IV SCH (21:06)
[2023-03-12] VITALS (7 sets, daily range): BP systolic 99–186; BP diastolic 35–91
--- NOTE | 2023-03-12 00:25 | NUR ---
RN NOTE; PT REFUSED BLOOD SUGAR CHECK.
[2023-03-12] MEDS: IPRATROPIUM NEB FS 0.5 MG/2.5 ML AMPUL.NEB NEB SCH ×4 (02:07→20:29)
[2023-03-12] MEDS: ALBUTEROL HALF STRENGTH 1.25 MG/3 ML VIAL.NEB NEB SCH ×4 (02:08→20:29)
[2023-03-12] MEDS: clonazePAM 0.5 MG TABLET GT SCH ×3 (04:13→21:12)
[2023-03-12] MEDS: BLOOD SUGAR DIAGNOSTIC 1 EACH STRIP IN SCH ×4 (05:41→17:31)
--- NOTE | 2023-03-12 06:21 | NUR ---
RN CLOSING NOTE; PATIENT IN BED AWAKED AOX2-3 NON VERBAL ,ABLE TO MAKE NEEDS KNOWN,ON VENTILATOR ASSEEST DAIJA WELL SATING 99%,NO SIGN SOB/DISTRESS NOTED,NO SIGN OF PAIN/DISCOMFORT DURING SHIFT,DUE MEDS GIVEN ORDER,ALL NEEDS ATTENDED,ON G-TUBE FEEDING GLUCERNA 1.2 @50ML/HR INFUSING WELL,NO RESIDUAL NOTED,HOB ELEVATED AT ALL TIME,COLOSTOMY BAG WAS CHANGED,NO SKIN IRRITATION AROUND THE STOMA NOTED,IV ACCESS LEFT AC 20G SL.PATENT AND INTACT,SAFETY MEASURE IN PLACE ,CALL LIGHT WITHIN REACH, WILL ENDORSED TO NEXT SHIFT.
--- NOTE | 2023-03-12 07:16 | NUR ---
CONCRETE BUCKET UNLOADER OPENING NOTES RECEIVED PATIENT AWAKE IN BED, A/Ox2-3, HAS TRACH AND MECHANICAL VENT SETTINGS: FIO2 40%, VT 450 ML, RATE 12/MIN, PEEP 5. TOLERATING WELL NO S/S OF SOB. IV ACCESS LAC #20G S/L, INTACT AND PATENT. PATIENT HAS COLOSTOMY BAG, DRY AT THIS TIME. PATIENT HAS G-TUBE WITH GLUCERNA 1.2 @50 ML/HR, TOLERATING WELL, NO RESIDUAL NOTED. PATIENT CONTINENT, USES DIAPER, ON BEDREST. SKIN ISSUES: SACRAL REDNESS, BILATERAL ARM BRUISES AND RASH. SCAR. SAFETY MEASURES IN PLACE: BED LOCKED AND IN LOWEST POSITION, HOB ELEVATED, SIDE RAILS UPx2, CALL LIGHT WITHIN REACH. WILL CONTINUE TO MONITOR.
--- NOTE | 2023-03-12 07:34 | NUR ---
WOUND CARE CONSULT: PT PRESENTS WITH FRAGILE SKIN AND AREAS OF SKIN DISCOLORATION,PRESENT ON ADMISSION. DISCUSSED SKIN PROTECTION WITH NURSING STAFF. PT IS INCONTINENT. MD IN AGREEMENT WITH PLAN OF CARE.
[2023-03-12] MEDS: LORAZEPAM 1 MG TABLET GT PRN ×3 (07:53→23:38)
--- NOTE | 2023-03-12 08:00 | NUR ---
RN NOTES PATIENT REQUESTED PRN ATIVAN FOR ANXIETY. ADMINISTERED. WILL CONTINUE TO MONITOR.
[2023-03-12] MEDS: ENOXAPARIN SODIUM 40 MG/0.4 ML DISP.SYRIN SQ SCH (09:17)
[2023-03-12] MEDS: DOCUSATE SODIUM LIQ 100 MG/10 ML UDC GT SCH ×2 (09:18→17:30)
[2023-03-12] MEDS: ASPIRIN 81 MG TAB.CHEW GT SCH (09:18)
[2023-03-12] MEDS: PANTOPRAZOLE 40 MG/PACK PACK GT SCH (09:19)
[2023-03-12] MEDS: LINAGLIPTIN 5 MG TABLET GT SCH (09:19)
[2023-03-12] MEDS: MULTIVIT W/MINERALS 1 TAB TABLET GT SCH (09:19)
[2023-03-12] MEDS: LamoTRIgine 25 MG TABLET GT SCH ×2 (09:19→21:12)
[2023-03-12] MEDS: LACTOBACILLUS RHAMNOSUS GG 1 EACH CAP.SPRINK GT SCH ×2 (09:20→17:30)
[2023-03-12] MEDS: ESCITALOPRAM OXALATE (10 MG) 10 MG TABLET GT SCH (09:20)
[2023-03-12] MEDS: CALCIUM CARB 600MG /VIT D 1 EACH TABLET GT SCH (09:20)
[2023-03-12] MEDS: QUETIAPINE FUMARATE 25 MG TABLET GT SCH ×2 (09:20→17:31)
[2023-03-12] MEDS: ASCORBIC ACID 500 MG TABLET GT SCH (09:20)
[2023-03-12] MEDS: AMLODIPINE BESYLATE 2.5 MG TABLET GT SCH ×2 (09:21→17:32)
[2023-03-12] MEDS: FERROUS SULFATE UDC 300 MG/5 ML UDC GT SCH ×2 (09:22→17:30)
[2023-03-12] MEDS: DAPAGLIFLOZIN PROPANEDIOL 5 MG TABLET GT SCH (09:22)
[2023-03-12] MEDS: METOPROLOL TARTRATE 25 MG TABLET GT SCH ×2 (09:22→17:31)
[2023-03-12] MEDS: LISINOPRIL (10MG) 10 MG TABLET PO SCH ×2 (09:22→17:31)
[2023-03-12] MEDS: LamoTRIgine 100 MG TABLET GT SCH ×2 (09:22→21:12)
[2023-03-12] MEDS: PROSOURCE / PROSTAT (PYXIS) 30 ML UDC GT SCH (09:22)
[2023-03-12] MEDS: methylPREDNISolone SOD SUCC 40 MG/ML VIAL IV SCH (09:23)
[2023-03-12] MEDS: CHLORHEXIDINE GLUCONATE 15 ML UDC MM SCH ×2 (09:23→17:30)
[2023-03-12] MEDS: CLOBETASOL 0.05% OINT 30 GM TUBE TP SCH ×2 (09:24→17:54)
[2023-03-12] MEDS: GLUCERNA 1.2 1,000 ML BOTTLE NG PRN (13:31)
--- NOTE | 2023-03-12 16:35 | NUR ---
RN NOTES CARE TRANSFERRED TO ARABELLA SANDERS
--- NOTE | 2023-03-12 18:50 | NUR ---
TECHNICAL PROJECT MANAGER CLOSING NOTES PATIENT AWAKE IN BED, A/Ox2-3, HAS TRACH AND MECHANICAL VENT SETTINGS: FIO2 40%, VT 450 ML, RATE 12/MIN, PEEP 5. TOLERATING WELL NO S/S OF SOB. IV ACCESS LAC #20G S/L, INTACT AND PATENT. PATIENT HAS COLOSTOMY BAG, DRY AT THIS TIME. PATIENT HAS G-TUBE WITH GLUCERNA 1.2 @50 ML/HR, TOLERATING WELL, NO RESIDUAL NOTED. PATIENT CONTINENT, USES DIAPER, ON BEDREST. SKIN ISSUES: SACRAL REDNESS, BILATERAL ARM BRUISES AND RASH. SCAR. SAFETY MEASURES IN PLACE: BED LOCKED AND IN LOWEST POSITION, HOB ELEVATED, SIDE RAILS UPx2, CALL LIGHT WITHIN REACH. ALL SCHEDULED MEDS GIVEN SCHEDULED. WILL ENDORSE TO NEXT SHIFT
--- NOTE | 2023-03-12 19:15 | NUR ---
RN OPENING NOTE; RECEIVED PATIENT IN BED AWAKED AOX2-3,ABLE TO MAKE NEEDS KNOWN,ON VENTILATOR ASSEEST DAIJA WELL SATING 97%,NO SIGN SOB/DISTRESS NOTED,ON G-TUBE FEEDING GLUCERNA 1.2 @50ML/HR INFUSING WELL,NO RESIDUAL NOTED,HOB ELEVATED AT ALL TIME,COLOSTOMY BAG IN PLACE,IV ACCESS LEFT AC 20G SL.PATENT AND INTACT,SAFETY MEASURE IN PLACE ,CALL LIGHT WITHIN REACH, WILL CONTINUE TO MONITOR.
[2023-03-12] MEDS: QUETIAPINE FUMARATE 100 MG TABLET GT SCH (21:11)
[2023-03-13] VITALS: BP 132/51
--- NOTE | 2023-03-13 00:25 | NUR ---
RN NOTE; PT REFUSED BLD SUGAR CHECK.
[2023-03-13] MEDS: IPRATROPIUM NEB FS 0.5 MG/2.5 ML AMPUL.NEB NEB SCH ×4 (01:25→20:41)
[2023-03-13] MEDS: ALBUTEROL HALF STRENGTH 1.25 MG/3 ML VIAL.NEB NEB SCH ×4 (01:25→20:41)
[2023-03-13] MEDS: clonazePAM 0.5 MG TABLET GT SCH ×3 (04:20→21:24)
[2023-03-13] MEDS: BLOOD SUGAR DIAGNOSTIC 1 EACH STRIP IN SCH ×5 (05:08→23:10)
--- NOTE | 2023-03-13 06:17 | NUR ---
RN CLOSING NOTE, PATIENT IN BED,AWAKED AOX4 SOUTH KOREAN SPEAKING WITH A LITTLE FRENCH ABLE TO MAKE NEEDS KNOWN,ON RM AIR DAIJA WELL SATING 97%,NO SOB/DISTRESS NOTED,NO COMPLAIN OF PAIN/DISCOMFORT DURING SHIFT,DUE MED GIVEN ORDER,ALL NEEDS ATTENDED,IV ACCESS ON LAC 18G PATENT AND INTACT,SAFETY MEASURE IN PLACE,CALL LIGHT WITHIN REACH,WILL ENDORSED TO NEXT SHIFT.
[2023-03-13 07:00] VITALS: BP 129/53
[2023-03-13 07:08] LABS: CALCIUM, SERUM 9.7 mg/dL (8.5-10.1); CREATININE 1.1 mg/dL (0.6-1.3)
--- NOTE | 2023-03-13 07:25 | NUR ---
LASER TECHNICIAN OPENING NOTE; RECEIVED PATIENT IN BED, AWAKE, AOX2-3. ABLE TO MAKE NEEDS KNOWN. NO SIGNS OF ACUTE DISTRESS NOTED. ON VENTILATOR ASSIST WITH THE FOLLOWING SETTING: FIO2: 40%; PEEP: 5; TV: 450; R: 12, TOLERATING WELL AND SATURATING AT 100%. NO SIGNS OF SOB, BREATHING EVEN AND UNLABORED. HOB ELEVATED AT ALL TIME. PATIENT IS ON TELE MONITORING READING SR, HR: 60. DENIES ANY PAIN AT THIS TIME. WITH IV ACCESS ON L AC, #20G-SL, INTACT, PATENT AND FLUSHING WELL. NOTED WITH G-TUBE FEEDING GLUCERNA 1.2 @50ML/HR INFUSING WELL. WITH COLOSTOMY BAG IN PLACE. SAFETY MEASURES PUT IN PLACE; BED IN LOW AND LOCKED POSITION; SIDE RAILS UP X2; CALL LIGHT AND TABLE WITHIN EASY REACH. WILL CONTINUE WITH PLAN OF CARE.
[2023-03-13 08:44] LABS: BASOPHILS % (AUTO) 0.3 % (0.0-2.0); EOSINOPHILS % (AUTO) 2.2 % (0.0-6.0); HEMATOCRIT 27 % (33-45); HEMOGLOBIN 8.5 g/dL (11.5-14.8); LYMPHOCYTES # (AUTO) 1.6 K/uL (0.8-4.8); LYMPHOCYTES % (AUTO) 13.6 % (20.0-44.0); MEAN CORPUSCULAR HGB CONC 32 g/dl (31.0-36.0); MEAN CORPUSCULAR VOLUME 87 fL (82-100); MONOCYTES % (AUTO) 8.1 % (2.0-12.0); NEUTROPHILS # (AUTO) 9.2 K/uL (1.8-8.9); NEUTROPHILS % (AUTO) 75.8 % (43.0-81.0); PLATELET COUNT (AUTO) 291 K/uL (150-450); RED BLOOD CELL COUNT(AUTO) 3.11 MIL/uL (4.0-5.2); WHITE BLOOD COUNT (AUTO) 12.1 K/uL (4.3-11.0)
[2023-03-13] MEDS ORDERED: POTASSIUM CHLORIDE 20 MEQ POWDER PACKET PO ONE (09:00)
[2023-03-13] MEDS: QUETIAPINE FUMARATE 25 MG TABLET GT SCH ×2 (09:08→17:16)
[2023-03-13] MEDS: FERROUS SULFATE UDC 300 MG/5 ML UDC GT SCH ×2 (09:08→17:15)
[2023-03-13] MEDS: DOCUSATE SODIUM LIQ 100 MG/10 ML UDC GT SCH ×2 (09:08→17:15)
[2023-03-13] MEDS: CALCIUM CARB 600MG /VIT D 1 EACH TABLET GT SCH (09:08)
[2023-03-13] MEDS: ASCORBIC ACID 500 MG TABLET GT SCH (09:08)
[2023-03-13] MEDS: CHLORHEXIDINE GLUCONATE 15 ML UDC MM SCH ×2 (09:08→17:18)
[2023-03-13] MEDS: ESCITALOPRAM OXALATE (10 MG) 10 MG TABLET GT SCH (09:09)
[2023-03-13] MEDS: LINAGLIPTIN 5 MG TABLET GT SCH (09:09)
[2023-03-13] MEDS: MULTIVIT W/MINERALS 1 TAB TABLET GT SCH (09:09)
[2023-03-13] MEDS: LACTOBACILLUS RHAMNOSUS GG 1 EACH CAP.SPRINK GT SCH ×2 (09:09→17:15)
[2023-03-13] MEDS: PANTOPRAZOLE 40 MG/PACK PACK GT SCH (09:09)
[2023-03-13] MEDS: LISINOPRIL (10MG) 10 MG TABLET PO SCH ×2 (09:11→17:17)
[2023-03-13] MEDS: AMLODIPINE BESYLATE 2.5 MG TABLET GT SCH ×2 (09:11→17:18)
[2023-03-13] MEDS: ASPIRIN 81 MG TAB.CHEW GT SCH (09:11)
[2023-03-13] MEDS: METOPROLOL TARTRATE 25 MG TABLET GT SCH ×2 (09:12→17:18)
[2023-03-13] MEDS: methylPREDNISolone SOD SUCC 40 MG/ML VIAL IV SCH (09:12)
[2023-03-13] MEDS: ENOXAPARIN SODIUM 40 MG/0.4 ML DISP.SYRIN SQ SCH (09:13)
[2023-03-13] MEDS: LamoTRIgine 100 MG TABLET GT SCH ×2 (09:21→21:23)
[2023-03-13] MEDS: LamoTRIgine 25 MG TABLET GT SCH ×2 (09:21→21:23)
[2023-03-13] MEDS: PROSOURCE / PROSTAT (PYXIS) 30 ML UDC GT SCH (09:22)
[2023-03-13] MEDS: LORAZEPAM 1 MG TABLET GT PRN ×2 (09:38→17:18)
[2023-03-13 09:48] LABS: ABG BASE EXCESS 14.2 mmol/L; ABG OXYGEN SATURATION 95.8 % (92.0-98.5); ABG PCO2 55.9 mmHg (35.0-45.0); ABG PH 7.469 (7.350-7.450); ABG PO2 81.3 mmHg (75.0-100.0); AaDO2 139.6 mmHg; MetHb 0.3 % (0.0-1.5); O2Hb 95.5 % (94.0-97.0); SITE, ABG Right Radial; VENT MODE, BG AC 12 450 40% +5
[2023-03-13] MEDS: DAPAGLIFLOZIN PROPANEDIOL 5 MG TABLET GT SCH (09:52)
--- NOTE | 2023-03-13 09:53 | NUR ---
CUSTOMER SPECIALIST NOTE ABG'S DONE BY RT SHANNON, RESULTS RELAYED TO DR. GARZON BY RT WITH NO NEW ORDER AT THIS TIME. PATIENT KEPT COMFORTABLE, WITH NO SIGNS AND SYMPTOMS OF DISTRESS.
[2023-03-13] MEDS: CLOBETASOL 0.05% OINT 30 GM TUBE TP SCH ×2 (10:54→17:00)
[2023-03-13 11:29] VITALS: BP 109/65
[2023-03-13] MEDS: acetaZOLAMIDE SODIUM 500 MG/VIAL VIAL IV SCH (11:38)
[2023-03-13 16:32] VITALS: BP 149/65
[2023-03-13] MEDS: GLUCERNA 1.2 1,000 ML BOTTLE NG PRN (17:48)
--- NOTE | 2023-03-13 18:56 | NUR ---
REAL ESTATE BRANCH MANAGER CLOSING NOTE; PATIENT IN BED, AWAKE, AOX 2-3. ABLE TO MAKE NEEDS KNOWN THRU MOUTHING OF WORDS. NO SIGNS OF ACUTE DISTRESS NOTED. ON VENTILATOR ASSIST WITH THE FOLLOWING SETTING: FIO2: 40%; PEEP: 5; TV: 450; R: 12, TOLERATING WELL AND SATURATING AT 100%. NO SIGNS OF SOB, BREATHING EVEN AND UNLABORED. HOB ELEVATED AT ALL TIME. PATIENT IS ON TELE MONITORING READING SR, HR: 60. DENIES ANY PAIN AT THIS TIME. WITH IV ACCESS ON L AC, #20G-SL, INTACT, PATENT AND FLUSHING WELL. NOTED WITH G-TUBE FEEDING GLUCERNA 1.2 @50ML/HR INFUSING WELL, TOLERATED AND WITH RESIDUAL VOLUME OF 10ML. WITH COLOSTOMY BAG IN PLACED. ALL DUE MEDS GIVEN. ALL NURSING NEEDS ATTENDED. SAFETY MEASURES IN PLACED; BED IN LOW AND LOCKED POSITION; CALL LIGHT AND TABLE WITHIN EASY REACH. WILL ENDORSE TO LICENSED LOAN OFFICER NURSE FOR CONTINUITY OF CARE.
--- NOTE | 2023-03-13 19:30 | NUR ---
INDUSTRIAL INSULATOR OPENING NOTE RECEIVED RESTING IN BED, RESPONSIVE TO VERBAL STIMULI. A/O X2-3 AND ABLE TO MAKE NEEDS KNOWN THROUGH HEAD NODS AND WRITING. PT ON MECH VENT TO PRESCRIBED SETTINGS, TOLERATING WELL, O2 SAT 100%. NO SOB OR S/S OS RESPIRATORY DISTRESS. BREATHING EVEN AND UNLABORED. ON EXTERNAL PIT STEWARD READING SB 57 BPM. IV ACCESS LAC 20G, INTACT AND PATENT. SAFETY PRECAUTIONS IN PLACE. BED IN LOWEST LOCKED POSITION, HOB ELEVATED, SIDE RAILS UP X3, AND CALL LIGHT AND TABLE WITHIN REACH. ALL NEEDS MET AT THIS TIME.
[2023-03-13 20:00] VITALS: BP 106/42
[2023-03-13] MEDS: QUETIAPINE FUMARATE 100 MG TABLET GT SCH (21:23)
[2023-03-14] MEDS: IPRATROPIUM NEB FS 0.5 MG/2.5 ML AMPUL.NEB NEB SCH ×4 (01:32→20:07)
[2023-03-14] MEDS: ALBUTEROL HALF STRENGTH 1.25 MG/3 ML VIAL.NEB NEB SCH ×4 (01:32→20:07)
[2023-03-14 04:00] VITALS: BP 153/54
[2023-03-14] MEDS: clonazePAM 0.5 MG TABLET GT SCH ×3 (04:32→21:11)
[2023-03-14] MEDS: BLOOD SUGAR DIAGNOSTIC 1 EACH STRIP IN SCH ×3 (06:04→18:10)
--- NOTE | 2023-03-14 06:29 | NUR ---
CARDIAC CATH TECH CLOSING NOTE PT RESTING IN BED, RESPONSIVE TO VERBAL STIMULI. A/O X2-3 AND ABLE TO MAKE NEEDS KNOWN THROUGH HEAD NODS AND MOUTHING WORDS. PT ON MECH VENT TO PRESCRIBED SETTINGS, TOLERATING WELL, O2 SAT 100%. NO SOB OR S/S OS RESPIRATORY DISTRESS. BREATHING EVEN AND UNLABORED. ON EXTERNAL MEDICAL CLAIMS PROCESSOR READING SR 75 BPM. IV ACCESS LAC 20G SL, INTACT AND PATENT. KEPT CLEAN AND DRY. ALL DUE MEDS GIVEN ORDERED. SAFETY PRECAUTIONS IN PLACE AT ALL TIMES. BED IN LOWEST LOCKED POSITION, HOB ELEVATED, SIDE RAILS UP X3, AND CALL LIGHT AND TABLE WITHIN REACH. ALL NEEDS MET AT THIS TIME AND WILL ENDORSE TO ONCOMING NURSE FOR VERNA.
--- NOTE | 2023-03-14 07:15 | NUR ---
MS RN RECEIVED ON BED, AWAKE,ALERT,ORIENTED X4,NOT IN ANY FORM OF DISTRESS, RESPIRATIONS EVEN AND UNLABORED,NO SOB NOTED, LUNGS ARE DIMINISH,ABDOMEN SOFT,POSITIVE BOWEL SOUNDS,DENIES PAIN AT THIS TIME,G TUBE INTACT W/ FEEDING AT 50ML/HR TOLERATING WELL W/O RESIDUAL, VENTILATOR DEPENDENT W/O DISTRESS, DENIES PAIN AT THIS TIME,REPOSITIONED FOR COMFORT,ALL NEEDS ATTENDED.
[2023-03-14 08:00] VITALS: BP 127/63
[2023-03-14] MEDS: LORAZEPAM 1 MG TABLET GT PRN (08:33)
--- NOTE | 2023-03-14 10:00 | NUR ---
MS RN DUE MEDS GIVEN VIA G TUBE,ALL NEEDS ATTENDED.
[2023-03-14] MEDS: FERROUS SULFATE UDC 300 MG/5 ML UDC GT SCH ×2 (10:03→18:08)
[2023-03-14] MEDS: CHLORHEXIDINE GLUCONATE 15 ML UDC MM SCH ×2 (10:03→18:10)
[2023-03-14] MEDS: DOCUSATE SODIUM LIQ 100 MG/10 ML UDC GT SCH ×2 (10:03→18:08)
[2023-03-14] MEDS: CALCIUM CARB 600MG /VIT D 1 EACH TABLET GT SCH (10:04)
[2023-03-14] MEDS: methylPREDNISolone SOD SUCC 40 MG/ML VIAL IV SCH (10:04)
[2023-03-14] MEDS: PANTOPRAZOLE 40 MG/PACK PACK GT SCH (10:04)
[2023-03-14] MEDS: LACTOBACILLUS RHAMNOSUS GG 1 EACH CAP.SPRINK GT SCH ×2 (10:04→18:10)
[2023-03-14] MEDS: ASPIRIN 81 MG TAB.CHEW GT SCH (10:04)
[2023-03-14] MEDS: LINAGLIPTIN 5 MG TABLET GT SCH (10:05)
[2023-03-14] MEDS: LamoTRIgine 25 MG TABLET GT SCH ×2 (10:05→21:11)
[2023-03-14] MEDS: ASCORBIC ACID 500 MG TABLET GT SCH (10:05)
[2023-03-14] MEDS: ESCITALOPRAM OXALATE (10 MG) 10 MG TABLET GT SCH (10:05)
[2023-03-14] MEDS: LamoTRIgine 100 MG TABLET GT SCH ×2 (10:05→21:11)
[2023-03-14] MEDS: MULTIVIT W/MINERALS 1 TAB TABLET GT SCH (10:06)
[2023-03-14] MEDS: AMLODIPINE BESYLATE 2.5 MG TABLET GT SCH ×2 (10:06→18:09)
[2023-03-14] MEDS: LISINOPRIL (10MG) 10 MG TABLET PO SCH ×2 (10:07→18:09)
[2023-03-14] MEDS: METOPROLOL TARTRATE 25 MG TABLET GT SCH ×2 (10:07→18:10)
[2023-03-14] MEDS: QUETIAPINE FUMARATE 25 MG TABLET GT SCH ×2 (10:07→18:08)
[2023-03-14] MEDS: ENOXAPARIN SODIUM 40 MG/0.4 ML DISP.SYRIN SQ SCH (10:11)
[2023-03-14] MEDS: PROSOURCE / PROSTAT (PYXIS) 30 ML UDC GT SCH (10:15)
[2023-03-14] MEDS: acetaZOLAMIDE SODIUM 500 MG/VIAL VIAL IV SCH (10:15)
[2023-03-14] MEDS: DAPAGLIFLOZIN PROPANEDIOL 5 MG TABLET GT SCH (10:50)
[2023-03-14] MEDS: CLOBETASOL 0.05% OINT 30 GM TUBE TP SCH ×2 (10:51→18:53)
[2023-03-14 12:13] VITALS: BP 136/69
[2023-03-14 15:37] VITALS: BP 141/54
--- NOTE | 2023-03-14 16:25 | NUR ---
ms rn on bed, sleeping,all needs attended.
[2023-03-14] MEDS: GLUCERNA 1.2 1,000 ML BOTTLE NG PRN (18:45)
[2023-03-14 20:00] VITALS: BP 161/67
[2023-03-14 20:38] VITALS: BP 161/67
[2023-03-14] MEDS: QUETIAPINE FUMARATE 100 MG TABLET GT SCH (21:11)
[2023-03-15] VITALS: BP_SYST 150; BP_DIAS 6; BP_DIAS 67
[2023-03-15] MEDS: BLOOD SUGAR DIAGNOSTIC 1 EACH STRIP IN SCH ×4 (00:17→18:03)
[2023-03-15] MEDS: LORAZEPAM 1 MG TABLET GT PRN ×3 (02:05→19:52)
[2023-03-15] MEDS: ALBUTEROL HALF STRENGTH 1.25 MG/3 ML VIAL.NEB NEB SCH ×4 (02:27→20:22)
[2023-03-15] MEDS: IPRATROPIUM NEB FS 0.5 MG/2.5 ML AMPUL.NEB NEB SCH ×4 (02:27→20:22)
--- NOTE | 2023-03-15 04:33 | NUR ---
RN CLOSING NOTES: alert and orientated X2 able to make hert needs known Glucerna 1.2 infusing 50 ml hr via GT no residual aspiration precautions Ativan requisted at 0200 1 mg po colostomy brown mushy stool SR on the telemonitor
[2023-03-15 04:47] VITALS: BP 160/86
[2023-03-15] MEDS: clonazePAM 0.5 MG TABLET GT SCH ×3 (04:57→20:59)
--- NOTE | 2023-03-15 07:15 | NUR ---
ms rn received on bed, awake,alert,oriented x4,not in any form of distress, patient is vent dependent, w/ g tube of glucerrna at 50ml/ hour tolerating well w/o residual, colostomy intact w/ blackish output, denies pain at this time,bed in low position, side rails up, repositioned for comfort,all needs attended.
[2023-03-15 08:25] VITALS: BP 141/62
[2023-03-15] MEDS: DOCUSATE SODIUM LIQ 100 MG/10 ML UDC GT SCH ×2 (09:00→17:12)
[2023-03-15] MEDS: CHLORHEXIDINE GLUCONATE 15 ML UDC MM SCH ×2 (09:50→17:12)
[2023-03-15] MEDS: methylPREDNISolone SOD SUCC 40 MG/ML VIAL IV SCH (09:50)
[2023-03-15] MEDS: acetaZOLAMIDE SODIUM 500 MG/VIAL VIAL IV SCH (09:51)
[2023-03-15] MEDS: FERROUS SULFATE UDC 300 MG/5 ML UDC GT SCH ×2 (09:51→17:12)
[2023-03-15] MEDS: DAPAGLIFLOZIN PROPANEDIOL 5 MG TABLET GT SCH (09:51)
--- NOTE | 2023-03-15 10:00 | NUR ---
ms rn due meds given via g tube,all needs attended.
[2023-03-15] MEDS: CALCIUM CARB 600MG /VIT D 1 EACH TABLET GT SCH (10:05)
[2023-03-15] MEDS: LamoTRIgine 100 MG TABLET GT SCH ×2 (10:05→20:59)
[2023-03-15] MEDS: ASPIRIN 81 MG TAB.CHEW GT SCH (10:05)
[2023-03-15] MEDS: MULTIVIT W/MINERALS 1 TAB TABLET GT SCH (10:05)
[2023-03-15] MEDS: LINAGLIPTIN 5 MG TABLET GT SCH (10:07)
[2023-03-15] MEDS: LamoTRIgine 25 MG TABLET GT SCH ×2 (10:07→20:59)
[2023-03-15] MEDS: LACTOBACILLUS RHAMNOSUS GG 1 EACH CAP.SPRINK GT SCH ×2 (10:07→17:12)
[2023-03-15] MEDS: ASCORBIC ACID 500 MG TABLET GT SCH (10:08)
[2023-03-15] MEDS: METOPROLOL TARTRATE 25 MG TABLET GT SCH ×2 (10:08→17:14)
[2023-03-15] MEDS: AMLODIPINE BESYLATE 2.5 MG TABLET GT SCH ×2 (10:08→17:13)
[2023-03-15] MEDS: ESCITALOPRAM OXALATE (10 MG) 10 MG TABLET GT SCH (10:08)
[2023-03-15] MEDS: PANTOPRAZOLE 40 MG/PACK PACK GT SCH (10:08)
[2023-03-15] MEDS: LISINOPRIL (10MG) 10 MG TABLET PO SCH ×2 (10:09→17:13)
[2023-03-15] MEDS: ENOXAPARIN SODIUM 40 MG/0.4 ML DISP.SYRIN SQ SCH (10:10)
[2023-03-15] MEDS: PROSOURCE / PROSTAT (PYXIS) 30 ML UDC GT SCH (10:14)
[2023-03-15] MEDS: QUETIAPINE FUMARATE 25 MG TABLET GT SCH ×2 (10:15→17:12)
[2023-03-15 12:00] VITALS: BP 150/80
[2023-03-15] MEDS: CLOBETASOL 0.05% OINT 30 GM TUBE TP SCH ×2 (14:19→18:20)
[2023-03-15 16:17] VITALS: BP 147/69
[2023-03-15] MEDS: GLUCERNA 1.2 1,000 ML BOTTLE NG PRN (17:26)
[2023-03-15] MEDS: INSULIN REGULAR, HUMAN 100 UNIT/ML 3 ML VIAL SQ PRN (18:04)
--- NOTE | 2023-03-15 19:07 | NUR ---
DRIP BOX TENDER CLOSING NOTE PT IN BED, RESPONSIVE TO VERBAL STIMULI. A/O X2-3 AND ABLE TO MAKE NEEDS KNOWN THROUGH HEAD NODS AND MOUTHING WORDS. PT ON MECH VENT TO PRESCRIBED SETTINGS, TOLERATING WELL, O2 SAT 100%. NO SOB OR DISTRESS NOTED . ON EXTERNAL TOMBSTONE SETTER READING SR 75 BPM. IV ACCESS LAC 20G SL, INTACT AND PATENT. KEPT CLEAN AND DRY. ALL DUE MEDS GIVEN ORDERED. SAFETY PRECAUTIONS IN PLACE AT ALL TIMES. BED IN LOWEST LOCKED POSITION, HOB ELEVATED, SIDE RAILS UP X3, AND CALL LIGHT AND TABLE WITHIN REACH. ALL NEEDS MET AT THIS TIME AND WILL ENDORSED TO NEXT SHIFT
--- NOTE | 2023-03-15 19:47 | NUR ---
noc rn opening received patient in bed. alert and oriented, mouths words and able to make needs known. no s/s of apparent distress mechanical vent. denies any pain but requesting for her ativan. reading sr on the tele monitor with 93bpm. encouraged with the use of call light. safety in place. will continue with plan of care for patient.
--- NOTE | 2023-03-15 19:52 | NUR ---
noc rn note Patient was anxious when I made my rounds, mouthing "my Ativan is overdue". Given 1mg of Ativan as ordered PRN. Will monitor.
[2023-03-15 20:00] VITALS: BP 170/119
[2023-03-15] MEDS: hydrALAZINE HCL 25 MG TABLET GT PRN (20:59)
--- NOTE | 2023-03-15 21:12 | NUR ---
noc rn note re-checked patient's BP and it's 183/83 HR86. Given Apresoline 25mg as ordered PRN. will re-assess.
[2023-03-15] MEDS: QUETIAPINE FUMARATE 100 MG TABLET GT SCH (22:01)
[2023-03-16] VITALS: BP 155/91
[2023-03-16] MEDS: INSULIN REGULAR, HUMAN 100 UNIT/ML 3 ML VIAL SQ PRN ×2 (00:38→05:52)
[2023-03-16] MEDS: BLOOD SUGAR DIAGNOSTIC 1 EACH STRIP IN SCH ×4 (00:38→17:23)
[2023-03-16] MEDS: IPRATROPIUM NEB FS 0.5 MG/2.5 ML AMPUL.NEB NEB SCH ×4 (01:42→19:52)
[2023-03-16] MEDS: ALBUTEROL HALF STRENGTH 1.25 MG/3 ML VIAL.NEB NEB SCH ×4 (01:42→19:52)
[2023-03-16] MEDS: LORAZEPAM 1 MG TABLET GT PRN ×2 (03:59→09:56)
--- NOTE | 2023-03-16 03:59 | NUR ---
noc rn note Patient getting anxious again. wanting to go home mouthing "Get me out of here". Requested her ativan. Given Ativan 1mg as ordered PRN. will monitor.
[2023-03-16 04:00] VITALS: BP 125/47
[2023-03-16] MEDS: clonazePAM 0.5 MG TABLET GT SCH ×3 (05:07→21:06)
--- NOTE | 2023-03-16 05:52 | NUR ---
noc rn note Blood sugar 99 this am. No coverage needed.
[2023-03-16 07:00] VITALS: BP 136/66
--- NOTE | 2023-03-16 07:08 | NUR ---
noc rn closing Patient in bed sleeping comfortably. no s/s of apparent distress in mechanical vent. denies pain. reading sr throughout shift. All needs attended. all scheduled medications administered. safety kept in place throughout shift. will endorse to morning shift rn for continuity of patient care.
--- NOTE | 2023-03-16 07:30 | NUR ---
TRAVEL MANAGER Opening Note Received patient in bed asleeping, aroused, responsive to voice/touch, HOB elevated. Pt obtuned trach Shiley XLT #6, mechanical vent, FiO2: 40, Rate:12, Peep:5, Vt: 450. No s/s of distress/SOB, denied pain. Tele monitoring. Gtube in place, patent running Glucerna 1.2 @50cc/h, tolerated. Aspiration precaution maintained. IV LAC #20G SL in place, patent, no s/s of infection/infiltration. Safety measure in place, low bed locked, call light at reach. will continue to morning patient.
[2023-03-16] MEDS: CHLORHEXIDINE GLUCONATE 15 ML UDC MM SCH ×2 (09:21→16:27)
[2023-03-16] MEDS: DOCUSATE SODIUM LIQ 100 MG/10 ML UDC GT SCH ×2 (09:21→16:27)
[2023-03-16] MEDS: ASPIRIN 81 MG TAB.CHEW GT SCH (09:25)
[2023-03-16] MEDS: PROSOURCE / PROSTAT (PYXIS) 30 ML UDC GT SCH (09:25)
[2023-03-16] MEDS: PANTOPRAZOLE 40 MG/PACK PACK GT SCH (09:25)
[2023-03-16] MEDS: METOPROLOL TARTRATE 25 MG TABLET GT SCH ×2 (09:25→16:31)
[2023-03-16] MEDS: FERROUS SULFATE UDC 300 MG/5 ML UDC GT SCH ×2 (09:25→16:27)
[2023-03-16] MEDS: LISINOPRIL (10MG) 10 MG TABLET PO SCH ×2 (09:26→16:31)
[2023-03-16] MEDS: AMLODIPINE BESYLATE 2.5 MG TABLET GT SCH ×2 (09:26→16:32)
[2023-03-16] MEDS: CALCIUM CARB 600MG /VIT D 1 EACH TABLET GT SCH (09:27)
[2023-03-16] MEDS: QUETIAPINE FUMARATE 25 MG TABLET GT SCH ×2 (09:27→16:28)
[2023-03-16] MEDS: LINAGLIPTIN 5 MG TABLET GT SCH (09:27)
[2023-03-16] MEDS: MULTIVIT W/MINERALS 1 TAB TABLET GT SCH (09:27)
[2023-03-16] MEDS: LACTOBACILLUS RHAMNOSUS GG 1 EACH CAP.SPRINK GT SCH ×2 (09:27→16:28)
[2023-03-16] MEDS: ESCITALOPRAM OXALATE (10 MG) 10 MG TABLET GT SCH (09:27)
[2023-03-16] MEDS: LamoTRIgine 100 MG TABLET GT SCH ×2 (09:28→21:06)
[2023-03-16] MEDS: ASCORBIC ACID 500 MG TABLET GT SCH (09:28)
[2023-03-16] MEDS: CLOBETASOL 0.05% OINT 30 GM TUBE TP SCH ×2 (09:30→16:33)
[2023-03-16] MEDS: ENOXAPARIN SODIUM 40 MG/0.4 ML DISP.SYRIN SQ SCH (09:43)
[2023-03-16] MEDS: LamoTRIgine 25 MG TABLET GT SCH ×2 (09:43→21:06)
[2023-03-16] MEDS: DAPAGLIFLOZIN PROPANEDIOL 5 MG TABLET GT SCH (09:44)
[2023-03-16 09:45] LABS: ABG BASE EXCESS 8.2 mmol/L; ABG OXYGEN SATURATION 76.2 % (92.0-98.5); ABG PCO2 61.7 mmHg (35.0-45.0); ABG PH 7.371 (7.350-7.450); ABG PO2 41.7 mmHg (75.0-100.0); AaDO2 172.5 mmHg; COHb 0.1 % (0.5-1.5); MetHb 0.1 % (0.0-1.5); PEEP,BG 5 cm H2O; SITE, ABG Right Brachial; VT, ABG 450 mL
[2023-03-16 10:31] LABS: CALCIUM, SERUM 12.6 mg/dL (8.5-10.1); CREATININE 1.5 mg/dL (0.6-1.3)
[2023-03-16 11:10] LABS: POTASSIUM 2.5 mmol/L (3.5-5.1)
--- NOTE | 2023-03-16 11:24 | NUR ---
CLIENT SUCCESS DIRECTOR Note Received critical reported from [facility] at 1117 for Potassium 2.5. Doctor Melian notified at 1120 and order Potassium Chloride 80 meq PO Gtube. Carry out the order.
[2023-03-16] MEDS ORDERED: POTASSIUM CHLORIDE 20 MEQ TAB.PRT.SR PO ONE (11:30)
[2023-03-16 12:00] VITALS: BP 110/56
[2023-03-16] MEDS: POTASSIUM CHLORIDE 20 MEQ TAB.PRT.SR PO SCH ×4 (12:05→15:19)
[2023-03-16 16:00] VITALS: BP 137/57
[2023-03-16] MEDS: GLUCERNA 1.2 1,000 ML BOTTLE NG PRN (19:36)
--- NOTE | 2023-03-16 19:39 | NUR ---
BUILDING MECHANIC Closing Note Patient in bed, awake, responsive to voice/touch, able to make needs known through mouth wording/writing. HOB elevated. Pt obtuned trach Shiley XLT #6, mechanical vent, FiO2: 40, Rate:12, Peep:5, Vt: 450. No s/s of distress/SOB, denied pain. Tele monitoring. Gtube in place, patent running Glucerna 1.2 @50cc/h, tolerated. Aspiration precaution maintained. IV LAC #20G SL in place, patent, no s/s of infection/infiltration. Safety measure in place, low bed locked, call light at reach. Will endorse to next shift nurse to continue monitoring patient
[2023-03-16 20:00] VITALS: BP 116/69
--- NOTE | 2023-03-16 20:25 | NUR ---
RN OPENING NOTE RECEIVED PT AWAKE IN BED. A/O X 2-3, USING MOUTH WORDS. PT IS TRACH. MECH. VENT., TOLERATING WELL, BREATHING EVEN AND UNLABORED @ THIS TIME. PT IV ON LEFT AC #20G SALINE LOCK, PATENT, INTACT AND FLUSHES WELL WITH NO S & SX OF INFILTRATION @ SITE NOTED. PT G-TUBE IS IN PLACE RUNNING GLUCERNA @ 50 MLS/HR, WITH NO RESIDUAL. PT COLOSTOMY BAG IS IN PLACE. SAFETY MEASURE IN PLACE. BED IN LOWEST AND LOCKED POSITION. SIDE RAILS UP X 4. BEDSIDE TABLE AND CALL LIGHT IS WITHIN REACH. BED ALARM IS ON. WILL CONTINUE TO MONITOR PT ACCORDINGLY. Addendum: 03/16/23 at 2026 by YADIRA COLLADO RN TIME ENTRY, ERROR. OPENING NOTES @ 1900
[2023-03-16] MEDS: QUETIAPINE FUMARATE 100 MG TABLET GT SCH (21:06)
[2023-03-17] VITALS: BP 84/33
--- NOTE | 2023-03-17 | NUR ---
HELD INSULIN REGULAR D/T PT BLOOD GLUCOSE OF 90.
[2023-03-17] MEDS: BLOOD SUGAR DIAGNOSTIC 1 EACH STRIP IN SCH ×4 (00:09→17:08)
--- NOTE | 2023-03-17 00:20 | NUR ---
PT BP 84/33, HR 48BPM, BLOOD GLUCOSE 90. PT IS SLEEPING BUT EASY TO AROUSE. CHARGE NURSE MADE AWARE. INFORMED DR. GTZ. DR GTZ ORDERED IV BOLUS @500MLS/HR PRN, REPEAT IF NEEDED.
[2023-03-17] MEDS ORDERED: IV NS 0.9% 500 ML BAG IV PRN (00:30)
[2023-03-17] MEDS ORDERED: IV NS 0.9% 500 ML IV PRN (01:00)
[2023-03-17] MEDS: IPRATROPIUM NEB FS 0.5 MG/2.5 ML AMPUL.NEB NEB SCH ×3 (01:19→12:52)
[2023-03-17] MEDS: ALBUTEROL HALF STRENGTH 1.25 MG/3 ML VIAL.NEB NEB SCH ×3 (01:19→12:52)
[2023-03-17 04:00] VITALS: BP 137/91
[2023-03-17] MEDS: LORAZEPAM 1 MG TABLET GT PRN ×2 (05:19→19:24)
[2023-03-17] MEDS: clonazePAM 0.5 MG TABLET GT SCH ×2 (05:25→12:41)
[2023-03-17] MEDS: INSULIN REGULAR, HUMAN 100 UNIT/ML 3 ML VIAL SQ PRN ×2 (05:41→17:17)
--- NOTE | 2023-03-17 05:41 | NUR ---
HELD INSULIN REGULAR D/T PT BLOOD GLUCOSE OF 93.
--- NOTE | 2023-03-17 06:43 | NUR ---
RN CLOSING NOTE PT AWAKE AND RESTING COMFORTABLY IN BED. A/O X 2-3, RESPONSIVE & FOLLOWS VERBAL COMMAND. PT IS TRACH. MECH. VENT., W/ NO S & SX OF RESPIRATORY DISTRESS NOTED @ THIS TIME. PT IV ON LEFT AC #20G SALINE LOCK, PATENT, INTACT AND FLUSHES WELL WITH NO S & SX OF INFILTRATION @ SITE NOTED. PT IS IN INFORMATICS ANALYST WITH CURRENT READING SINUS RHYTHM HR 99 BPM. PT G-TUBE IS IN PLACE RUNNING GLUCERNA @ 50 MLS/HR, WITH NO RESIDUAL. PT COLOSTOMY BAG IS IN PLACE. PT DIAPER CHANGE X 3. PT KEPT CLEAN AND DRY. ADMINISTERED MEDICATION PER MD'S ORDER. SAFETY MEASURE IN PLACE. BED IN LOWEST AND LOCKED POSITION. SIDE RAILS UP X 4. BEDSIDE TABLE AND CALL LIGHT IS WITHIN REACH. BED ALARM IS ON. WILL ENDORSE TO THE NEXT SHIFT FOR VERNA.
--- NOTE | 2023-03-17 07:00 | NUR ---
COMPLIANCE CONSULTANT OPENING NOTE RECEIVED RESTING IN BED, RESPONSIVE TO VERBAL STIMULI. A/O X2-3 AND ABLE TO MAKE NEEDS KNOWN THROUGH HEAD BY NODDING AND WRITING. PT ON MECHANICAL VENT WITH ONGOING VENT SETTING: SHILEY #6, FI02 40,RATE 12,PEEP 5. TOLERATING WELL, O2 SAT 100%. NO SOB OR S/S OS RESPIRATORY DISTRESS. BREATHING EVEN AND UNLABORED. ON HAT BLOCKING MACHINE OPERATOR READING SB 97BPM. IV ACCESS LAC 20G, INTACT AND PATENT AND SALINE LOCKED. SAFETY PRECAUTIONS IN PLACE. BED IN LOWEST LOCKED POSITION, HOB ELEVATED, SIDE RAILS UP X3, AND CALL LIGHT AND TABLE WITHIN REACH.WILL MONITOR PT ACCORDINGLY.
[2023-03-17 08:26] VITALS: BP 143/75
[2023-03-17] MEDS: DOCUSATE SODIUM LIQ 100 MG/10 ML UDC GT SCH ×2 (08:59→16:18)
[2023-03-17] MEDS: LamoTRIgine 25 MG TABLET GT SCH (08:59)
[2023-03-17] MEDS: CHLORHEXIDINE GLUCONATE 15 ML UDC MM SCH ×2 (08:59→16:18)
[2023-03-17] MEDS ORDERED: methylPREDNISolone SOD SUCC 40 MG/ML VIAL IV SCH (09:00)
[2023-03-17] MEDS: QUETIAPINE FUMARATE 25 MG TABLET GT SCH ×2 (09:00→16:18)
[2023-03-17] MEDS: CALCIUM CARB 600MG /VIT D 1 EACH TABLET GT SCH (09:00)
[2023-03-17] MEDS: PANTOPRAZOLE 40 MG/PACK PACK GT SCH (09:00)
[2023-03-17] MEDS: MULTIVIT W/MINERALS 1 TAB TABLET GT SCH (09:00)
[2023-03-17] MEDS: ASPIRIN 81 MG TAB.CHEW GT SCH (09:00)
[2023-03-17] MEDS: LACTOBACILLUS RHAMNOSUS GG 1 EACH CAP.SPRINK GT SCH ×2 (09:00→16:18)
[2023-03-17] MEDS: ESCITALOPRAM OXALATE (10 MG) 10 MG TABLET GT SCH (09:00)
[2023-03-17] MEDS: LamoTRIgine 100 MG TABLET GT SCH (09:00)
[2023-03-17] MEDS: FERROUS SULFATE UDC 300 MG/5 ML UDC GT SCH ×2 (09:00→16:18)
[2023-03-17] MEDS: METOPROLOL TARTRATE 25 MG TABLET GT SCH ×2 (09:01→16:19)
[2023-03-17] MEDS: LINAGLIPTIN 5 MG TABLET GT SCH (09:01)
[2023-03-17] MEDS: ASCORBIC ACID 500 MG TABLET GT SCH (09:01)
[2023-03-17] MEDS: AMLODIPINE BESYLATE 2.5 MG TABLET GT SCH ×2 (09:02→16:20)
[2023-03-17] MEDS: PROSOURCE / PROSTAT (PYXIS) 30 ML UDC GT SCH (09:02)
[2023-03-17] MEDS: LISINOPRIL (10MG) 10 MG TABLET PO SCH ×2 (09:02→16:19)
[2023-03-17] MEDS: ENOXAPARIN SODIUM 40 MG/0.4 ML DISP.SYRIN SQ SCH (09:08)
[2023-03-17] MEDS: DAPAGLIFLOZIN PROPANEDIOL 5 MG TABLET GT SCH (09:20)
[2023-03-17] MEDS: CLOBETASOL 0.05% OINT 30 GM TUBE TP SCH ×2 (09:55→16:20)
[2023-03-17 11:24] VITALS: BP 179/77
[2023-03-17 16:20] VITALS: BP 143/71
[2023-03-17] MEDS: GLUCERNA 1.2 1,000 ML BOTTLE NG PRN (16:54)
--- NOTE | 2023-03-17 18:44 | NUR ---
CLINICAL RESEARCH PHYSICIAN CLOSING NOTES PT IN BED, AWAKE,ALERT AND ORIENTED X3 AND ABLE TO MAKE NEEDS KNOWN BY MOUTHING WORDS AND WRITING. PT ON MECHANICAL VENT WITH ONGOING VENT SETTING: SHILEY #6, FI02 40,RATE 12,PEEP 5. TOLERATING WELL, O2 SAT 100%. NO SOB OR S/S OS RESPIRATORY DISTRESS. BREATHING EVEN AND UNLABORED. ON DAIRY NUTRITIONIST READING SB 97BPM. IV ACCESS LAC 20G, INTACT AND PATENT AND SALINE LOCKED.ON GLUCERNA 1.2 @50ML/HR. SAFETY PRECAUTIONS IN PLACE. BED IN LOWEST LOCKED POSITION, HOB ELEVATED, SIDE RAILS UP X3, AND CALL LIGHT AND TABLE WITHIN REACH.WILL ENDORSED TO MATE CHIEF FOR CONTINUITY OF CARE.PATIENT WILL BE DC TODAY @2100,REPORT GIVEN TO TOMMY DE PAZ. ALL DC PAPERS DONE, PENDING BELONGINGS LIST.PICTURES TAKEN AND FILED TO PT'S CHART.
--- NOTE | 2023-03-17 19:55 | NUR ---
RN NOTES: ADDENDUM: PT PICKED UP GOING BACK TO [facility], REPORT GIVEN TO TOMMY DELGADO. BELONGINGS WITH THE PT WITNESSED BY WEB ANALYTICS DEVELOPER. CHILD SPECIALIST GIVEN TO MS FULLER. DC PACKET GIVEN TO WEB ANALYTICS DEVELOPER. PT REMAINED STABLE. AA/O X2-3 WITH CONFUSION. IV ACCESS REMOVED. PT LEFT THE UNIT STABLE.
== END 2023-03-17 20:00 | DRG 207 ==
LOC: ER 18:54 → TELE 22:31
PROVIDERS: ADMIT Nurse Practitioner Acute Care; ATTEND Internal Medicine
PROC: 5A1955Z Respiratory Ventilation, Greater than 96 Consecutive Hours (ICD-10-PCS; principal; 2023-03-08)
DX: J44.1 Chronic obstructive pulmonary disease with (acute) exacerbation (principal); J96.21 Acute and chronic respiratory failure with hypoxia; J96.22 Acute and chronic respiratory failure with hypercapnia; Z99.11 Dependence on respirator [ventilator] status; I48.20 Chronic atrial fibrillation, unspecified; D68.59 Other primary thrombophilia; E87.0 Hyperosmolality and hypernatremia; N13.30 Unspecified hydronephrosis; N17.9 Acute kidney failure, unspecified; E87.3 Alkalosis; Z20.822 Contact with and (suspected) exposure to COVID-19; Z93.0 Tracheostomy status; Z93.1 Gastrostomy status; R13.10 Dysphagia, unspecified; F41.9 Anxiety disorder, unspecified; E11.9 Type 2 diabetes mellitus without complications; F20.9 Schizophrenia, unspecified; G40.909 Epilepsy, unspecified, not intractable, without status epilepticus; Z88.1 Allergy status to other antibiotic agents; Z88.0 Allergy status to penicillin; Z79.84 Long term (current) use of oral hypoglycemic drugs; Z79.4 Long term (current) use of insulin; Z79.82 Long term (current) use of aspirin; Z79.899 Other long term (current) drug therapy; K21.9 Gastro-esophageal reflux disease without esophagitis; I10 Essential (primary) hypertension; Z87.891 Personal history of nicotine dependence; D72.829 Elevated white blood cell count, unspecified; T38.0X5A Adverse effect of glucocorticoids and synthetic analogues, initial encounter; Y92.9 Unspecified place or not applicable; Z74.09 Other reduced mobility; D63.8 Anemia in other chronic diseases classified elsewhere; E78.5 Hyperlipidemia, unspecified; I70.0 Atherosclerosis of aorta
CPT/HCPCS: 31720; 36415; 36600; 71045-TC; 76770-TC; 80048-TC; 80076-TC; 81001; 82803-TC; 82962-TC; 83735-TC; 83880; 84100-TC; 85025-TC; 85730-TC; 87081-TC; 94002-TC; 94003-TC; 94760-TC; 94762-TC; 94799-TC; 99082-TC; A4216; A4223; A6403; C9113; C9803; G0378; J1120; J1650; J1815; J1956; J2060; J2920; J2930; J7050